=== PATIENT | male | born 1995 | race American Indian/Alaskan Native ===

== ENCOUNTER 2021-01-30 12:14 | Emergency (ER) | payer SELFPAY ==
[2021-01-30 12:20] VITALS: BP 134/84
--- NOTE | 2021-01-30 12:55 | Emergency Department Report ---
HPI - General Chief Complaint: Eye Problems Time Seen by Provider: 01/30/21 12:42 - HPI HPI: 25-year-old -Indian male presents to the emergency department with complaint of swelling to the right lower eyelid that has been going on and getting progressively worse over the past month. It is slightly tender to palpation. He denies any vision change, eye redness, eye discharge, fever, headache. No past medical history. He has not taken anything for his symptoms prior to presentation today. ED Past Medical Hx - Past Medical History Previous Medical History?: No - Surgical History Past Surgical History?: No - Medications Home Medications: Home Medications Medication Instructions Recorded Confirmed Last Taken Type Amoxicillin [Trimox CAP] 500 mg PO Q8H #21 capsule 01/30/21 Unknown Rx Erythromycin [Erythromycin Ophth 1 cm OD Q6H #1 tube 01/30/21 Unknown Rx Oint] ED Review of Systems ROS: Stated complaint: EYE INFECTION Other details as noted in HPI Comment: All other systems reviewed and negative Constitutional: denies: chills, fever Eyes: other (right lower eyelid pain/swelling). denies: eye pain ENT: denies: ear pain, throat pain Respiratory: denies: cough, shortness of breath Cardiovascular: denies: chest pain, palpitations Gastrointestinal: denies: abdominal pain, vomiting Genitourinary: denies: dysuria, discharge Musculoskeletal: denies: back pain, arthralgia Skin: denies: rash, lesions Neurological: denies: headache, weakness Physical Exam - Physical Exam Vital Signs: Vital Signs 01/30/21 12:19 Temperature 98.5 F Pulse Rate 83 Respiratory 18 Rate Blood Pressure 134/84 O2 Sat by Pulse 98 Oximetry Physical Exam: GENERAL: The patient is well-developed well-nourished. HENT: Normocephalic. Atraumatic. Patient has moist mucous membranes. EYES: Extraocular motions are intact. Pupils equal reactive to light bilate rally. There is swelling and mild redness to the right lower eyelid. No fluctuance. Mild TTP over the swelling. No eye discharge. NECK: Supple. Trachea is midline. SKIN: Skin is warm and dry. NEURO: The patient is awake, alert, and oriented. The patient is cooperative. The patient has no focal neurologic deficits. Normal speech. MUSCULOSKELETAL: There is no tenderness or deformity. ED Course Vital Signs 01/30/21 12:19 Temperature 98.5 F Pulse Rate 83 Respiratory 18 Rate Blood Pressure 134/84 O2 Sat by Pulse 98 Oximetry ED Medical Decision Making - Medical Decision Making This patient presents with a 1 month history of progressively worsening right lower eyelid pain and swelling. The area is swollen, slightly erythematous, with mild tenderness to palpation. No fluctuance and it is mobile. This appears consistent with a blepharitis versus cyst. The patient be placed on antibiotic ointment and pills and has been given outpatient referrals for ophthalmology. Critical Care Time: No Critical care attestation.: If time is entered above; I have spent that time in minutes in the direct care of this critically ill patient, excluding procedure time. ED Disposition Clinical Impression: Blepharitis of eyelid of right eye Qualifiers: Blepharitis type: unspecified type Eyelid: lower Qualified Code(s): H01.002 - Unspecified blepharitis right lower eyelid Disposition: HOME / SELF CARE / HOMELESS Is pt being admited?: No Condition: Stable Instructions: Blepharitis Additional Instructions: Please take all medications as prescribed. I am giving you a referral for multiple local ophthalmologists for outpatient follow-up. Return to the emergency department with any worsening of your symptoms, new or concerning symptoms not addressed during this current emergency department visit, or with any acute distress. Prescriptions: Erythromycin [Erythromycin Ophth Oint] 1 cm OD Q6H #1 tube Amoxicillin [Trimox CAP] 500 mg PO Q8H #21 capsule Referrals: HERNAN BATES MD [Staff Physician] - 2-3 Days AHMET MILLER MD [Staff Physician] - 2-3 Days [facility] [Provider Group] - 2-3 Days Time of Disposition: 12:55
== END 2021-01-30 14:27 | disposition home or self-care (01) ==
LOC: ED 12:14
DX: H01.002 Unspecified blepharitis right lower eyelid (principal)
CPT/HCPCS: 99281

== ENCOUNTER 2021-12-28 21:48 | Inpatient (IN) | payer OTHER ==
[2021-12-28] MEDS ORDERED: SODIUM CHLORIDE 0.9% 1000 ML 1,000 ML IV ONE ×2 (22:14→23:37)
[2021-12-28] MEDS ORDERED: ZIPRASIDONE MESYLATE 20 MG VIAL IM ONE (22:14)
[2021-12-28] MEDS ORDERED: MIDAZOLAM 5 MG/5 ML INJ MDV IV STA (22:30)
[2021-12-28 23:14] LABS: Hemoglobin 15.7 gm/dl (11.8-15.2); Mean Corpuscular HGB Conc 31 % (32-34); Mean Corpuscular Volume 92 fl (84-94); Platelet Count 245 K/mm3 (140-440); Red Blood Count 5.42 M/mm3 (3.65-5.03); Red Cell Distribution Width 15.1 % (13.2-15.2)
[2021-12-28 23:32] LABS: Alanine Aminotransferase 40 units/L (7-56); Albumin 5.4 g/dL (3.9-5); BUN/Creatinine Ratio 8; Blood Urea Nitrogen 21 mg/dL (9-20); Calcium 10.8 mg/dL (8.4-10.2); Hemolysis Index 15
[2021-12-29 00:19] LABS: Basophils % (Manual) 0 % (0.0-1.8); Eosinophils % (Manual) 0 % (0.0-4.3); RBC Morphology Normal; Total Cells Counted 100
[2021-12-29] MEDS ORDERED: ZIPRASIDONE MESYLATE 20 MG VIAL IM ONE (01:48)
[2021-12-29] MEDS ORDERED: MIDAZOLAM 2 MG/2 ML INJ ONE (01:48)
--- NOTE | 2021-12-29 03:55 | Emergency Department Report ---
ED Psych HPI - General Chief Complaint: Psych Stated Complaint: PSYCH EVAL/HALLUCINATIONS Time Seen by Provider: 12/28/21 22:13 Source: patient, family Mode of arrival: Ambulatory Limitations: Altered Mental Status - History of Present Illness Initial Comments: agitation paranoia and extreme restlessness , sister reported he took a blue pill that she thinks it is ice , history of SI Complaint: altered mental status -: hour(s) Associated Psychiatric Symptoms: racing thoughts, delusions History of same: Yes Quality: constant Improves With: none Worsens With: none Treatments Prior to Arrival: placed on mental he, physical restraints, chemical restraints - Related Data Previous Rx's Medication Instructions Recorded Last Taken Type Amoxicillin [Trimox CAP] 500 mg PO Q8H #21 capsule 01/30/21 Unknown Rx Erythromycin [Erythromycin Ophth 1 cm OD Q6H #1 tube 01/30/21 Unknown Rx Oint] Allergies Allergy/AdvReac Type Severity Reaction Status Date / Time No Known Allergies Allergy Verified 01/30/21 12:18 ED Review of Systems ROS: Stated complaint: PSYCH EVAL/HALLUCINATIONS Other details as noted in HPI Comment: Unobtainable due to pts medical conditions ED Past Medical Hx - Past Medical History Previous Medical History?: No Hx Hypertension: No Hx CVA: No - Medications Home Medications: Home Medications Medication Instructions Recorded Confirmed Last Taken Type Amoxicillin [Trimox CAP] 500 mg PO Q8H #21 capsule 01/30/21 Unknown Rx Erythromycin [Erythromycin Ophth 1 cm OD Q6H #1 tube 01/30/21 Unknown Rx Oint] ED Physical Exam - General Limitations: Altered Mental Status General appearance: alert, anxious, other (agitated ) - Head Head exam: Present: atraumatic, normocephalic - Eye Eye exam: Present: normal appearance - ENT ENT exam: Present: mucous membranes moist - Neck Neck exam: Present: normal inspection - Respiratory Respiratory exam: Present: normal lung sounds bilaterally. Absent: respiratory distress - Cardiovascular Cardiovascular Exam: Present: normal rhythm, tachycardia. Absent: systolic murmur, diastolic murmur, rubs, gallop - GI/Abdominal GI/Abdominal exam: Present: soft, normal bowel sounds - Rectal Rectal exam: Present: deferred - Extremities Exam Extremities exam: Present: normal inspection - Back Exam Back exam: Present: normal inspection - Expanded Neurological Exam Expanded Neurological exam: Present: innattentive Best Eye Response ([place]): (4) open spontaneously Best Motor Response ([place]): (6) obeys commands Best Verbal Response ([place]): (5) oriented [place] Total: 15 - Psychiatric Psychiatric exam: Present: agitated, anxious, manic - Expanded Psychiatric Exam Expanded Focused psych exam: Present: paranoid, perseverating, restlessness, loose associations - Skin Skin exam: Present: warm, intact, normal color, diaphoretic. Absent: rash ED Course Vital Signs 12/28/21 22:56 Pulse Rate 110 H Respiratory 20 Rate Blood Pressure 104/47 [Right] O2 Sat by Pulse 100 Oximetry ED Medical Decision Making - Lab Data Result diagrams: 12/29/21 03:57 12/29/21 03:57 - EKG Data -: EKG Interpreted by Me EKG shows normal: sinus rhythm Rate: tachycardia - Radiology Data Radiology results: report reviewed, image reviewed - Medical Decision Making geodon and versed given , sedated, work up showed elevated wbc most likley 2ry to dehdyration and stress, juan noted , fluids given and repeat levels showed elevated ck level, will admit for medical before clearance Critical care attestation.: If time is entered above; I have spent that time in minutes in the direct care of this critically ill patient, excluding procedure time. ED Disposition Clinical Impression: Drug-induced psychotic disorder, JUAN (acute kidney injury), Rhabdomyolysis Disposition: ADMITTED INPATIENT Is pt being admited?: Yes Does the pt Need Aspirin: No Condition: Stable Referrals: PRIMARY CARE, [Primary Care Provider] - 3-5 Days
[2021-12-29 04:14] LABS: Cannabinoid Screen,Urine Negative; Cocaine Screen,Urine Negative; Methadone Screen,Urine Negative; Opiate Screen,Urine Negative
[2021-12-29 04:29] LABS: Basophils % (Auto) 0.3 % (0.0-1.8); Eosinophils % (Auto) 0.2 % (0.0-4.3); Hematocrit 42.2 % (35.5-45.6); Hemoglobin 13.6 gm/dl (11.8-15.2); Lymphocytes # (Auto) 1.4 K/mm3 (1.2-5.4); Lymphocytes % (Auto) 7.6 % (13.4-35.0); Mean Corpuscular HGB Conc 32 % (32-34); Mean Corpuscular Volume 91 fl (84-94); Monocytes # (Auto) 1.5 K/mm3 (0.0-0.8); Monocytes % (Auto) 8.1 % (0.0-7.3); Platelet Count 180 K/mm3 (140-440); Red Blood Count 4.63 M/mm3 (3.65-5.03); Red Cell Distribution Width 15.3 % (13.2-15.2)
[2021-12-29 04:31] LABS: Amphetamine Screen,Urine Positive; Benzodiazepines Screen,Urine Positive
[2021-12-29 04:34] LABS: Albumin 4.4 g/dL (3.9-5); Calcium 9.2 mg/dL (8.4-10.2)
[2021-12-29 04:38] LABS: Color,Urine Yellow (Yellow)
[2021-12-29 04:44] LABS: Bacteria,Urine 1+ /HPF (Negative); Mucus,Urine FEW /HPF
[2021-12-29] MEDS ORDERED: MORPHINE 4 MG/1 ML INJ IV PRN (05:17)
[2021-12-29] MEDS ORDERED: ONDANSETRON 4 MG/2 ML INJ IV PRN (05:17)
[2021-12-29] MEDS ORDERED: ALBUTEROL 2.5 MG/3 ML NEBU IH PRN (05:17)
[2021-12-29] MEDS ORDERED: MORPHINE 2 MG/1 ML INJ IV PRN (05:17)
[2021-12-29] MEDS ORDERED: ACETAMINOPHEN 325 MG TAB PO PRN (05:17)
--- NOTE | 2021-12-29 05:25 | History and Physical Report ---
History of Present Illness Date of examination: 12/29/21 Date of admission: 12/29/21 Chief complaint: Agitation Paranoia Hallucination History of present illness: 26 years old male with history of suicidal ideation was brought to the emergency room because of agitation paranoia and extreme restlessness .as per sister reported patient took a blue pill that she thinks it is ice In the emergency room patient is very agitated. Patient has racing thoughts and delusions. Subsequently patient was put on restraint In the emergency room patient is found to have WBC of 23.9. CK of 1853, potassium 3.4, BUN 21 creatinine 2.6, urine drug screen shows positive for be nzos amphetamine. Still going to admit the patient we will put the patient on IV fluid. We will consult psych for evaluation as well as nephrology Past History Past Medical History: other (Suicidal ideation, paranoia) Past Surgical History: No surgical history Social history: other (Drug abuse. Urine drug screen is positive for benzo and methamphetamine) Family history: no significant family history Medications and Allergies Allergies Allergy/AdvReac Type Severity Reaction Status Date / Time No Known Allergies Allergy Verified 01/30/21 12:18 Home Medications Medication Instructions Recorded Confirmed Last Taken Type Amoxicillin [Trimox CAP] 500 mg PO Q8H #21 capsule 01/30/21 Unknown Rx Erythromycin [Erythromycin Ophth 1 cm OD Q6H #1 tube 01/30/21 Unknown Rx Oint] Active Meds: Active Medications Acetaminophen (Acetaminophen 325 Mg Tab) 650 mg PO Q4H PRN PRN Reason: Pain MILD(1-3)/Fever >100.5/ALBERT Albuterol (Albuterol 2.5 Mg/3 Ml Nebu) 2.5 mg IH Q3HRT PRN PRN Reason: Shortness Of Breath Albuterol/Ipratropium (Ipratropium/Albuterol Sulfate 3 Ml Ampul.Neb) 1 ampul IH Q6HRT LINUS Famotidine (Famotidine 20 Mg/2 Ml Inj) 20 mg IV BID LINUS Dextrose/Sodium Chloride (D5/0.45ns) 1,000 mls @ 150 mls/hr IV DIRECT LINUS Morphine Sulfate (Morphine 2 Mg/1 Ml Inj) 2 mg IV Q4H PRN PRN Reason: Pain, Moderate (4-6) Morphine Sulfate (Morphine 4 Mg/1 Ml Inj) 4 mg IV Q4H PRN PRN Reason: Pain , Severe (7-10) Ondansetron HCl (Ondansetron 4 Mg/2 Ml Inj) 4 mg IV Q8H PRN PRN Reason: Nausea And Vomiting Sodium Chloride (Sodium Chloride 0.9% 10 Ml Flush Syringe) 10 ml IV BID LINUS Sodium Chloride (Sodium Chloride 0.9% 10 Ml Flush Syringe) 10 ml IV PRN PRN PRN Reason: LINE FLUSH Review of Systems All systems: negative Constitutional: other (Agitation paranoia hallucination, racing thoughts) Exam - Constitutional Vitals: Temp Pulse Resp BP Pulse Ox 110 H 20 104/47 100 12/28/21 22:56 12/28/21 22:56 12/28/21 22:56 12/28/21 22:56 General appearance: Present: no acute distress, well-nourished - EENT Eyes: Present: PERRL ENT: hearing intact, clear oral mucosa - Neck Neck: Present: supple, normal ROM - Respiratory Respiratory effort: normal Respiratory: bilateral: CTA - Cardiovascular Heart Sounds: Present: S1 & S2. Absent: rub, click - Extremities Extremities: pulses symmetrical, No edema Peripheral Pulses: within normal limits - Abdominal General gastrointestinal: Present: soft, non-tender, non-distended, normal bowel sounds Male genitourinary: Present: normal - Integumentary Integumentary: Present: clear, warm, dry - Musculoskeletal Musculoskeletal: gait normal, strength equal bilaterally - Psychiatric Psychiatric: agitated - Neurologic Neurologic: CNII-XII intact, moves all extremities Results - Labs CBC & Chem 7: 12/29/21 03:57 12/29/21 03:57 Labs: Laboratory Last Values WBC 18.2 K/mm3 (4.5-11.0) H 12/29/21 03:57 RBC 4.63 M/mm3 (3.65-5.03) 12/29/21 03:57 Hgb 13.6 gm/dl (11.8-15.2) 12/29/21 03:57 Hct 42.2 % (35.5-45.6) D 12/29/21 03:57 MCV 91 fl (84-94) 12/29/21 03:57 MCH 29 pg (28-32) 12/29/21 03:57 MCHC 32 % (32-34) 12/29/21 03:57 RDW 15.3 % (13.2-15.2) H 12/29/21 03:57 Plt Count 180 K/mm3 (140-440) 12/29/21 03:57 Lymph % (Auto) 7.6 % (13.4-35.0) L 12/29/21 03:57 Kay % (Auto) 8.1 % (0.0-7.3) H 12/29/21 03:57 Eos % (Auto) 0.2 % (0.0-4.3) 12/29/21 03:57 Baso % (Auto) 0.3 % (0.0-1.8) 12/29/21 03:57 Lymph # (Auto) 1.4 K/mm3 (1.2-5.4) 12/29/21 03:57 Kay # (Auto) 1.5 K/mm3 (0.0-0.8) H 12/29/21 03:57 Eos # (Auto) 0.0 K/mm3 (0.0-0.4) 12/29/21 03:57 Baso # (Auto) 0.0 K/mm3 (0.0-0.1) 12/29/21 03:57 Add Manual Diff Complete 12/28/21 22:37 Total Counted 100 12/28/21 22:37 Seg Neutrophils % 83.8 % (40.0-70.0) H 12/29/21 03:57 Seg Neuts % (Manual) 91.0 % (40.0-70.0) H 12/28/21 22:37 Band Neutrophils % 0 % 12/28/21 22:37 Lymphocytes % (Manual) 6.0 % (13.4-35.0) L 12/28/21 22:37 Reactive Lymphs % (Man) 0 % 12/28/21 22:37 Monocytes % (Manual) 3.0 % (0.0-7.3) 12/28/21 22:37 Eosinophils % (Manual) 0 % (0.0-4.3) 12/28/21 22:37 Basophils % (Manual) 0 % (0.0-1.8) 12/28/21 22:37 Metamyelocytes % 0 % 12/28/21 22:37 Myelocytes % 0 % 12/28/21 22:37 Promyelocytes % 0 % 12/28/21 22:37 Blast Cells % 0 % 12/28/21 22:37 Nucleated RBC % Not Reportable 12/28/21 22:37 Seg Neutrophils # 15.3 K/mm3 (1.8-7.7) H 12/29/21 03:57 Seg Neutrophils # Man 21.7 K/mm3 (1.8-7.7) H 12/28/21 22:37 Band Neutrophils # 0.0 K/mm3 12/28/21 22:37 Lymphocytes # (Manual) 1.4 K/mm3 (1.2-5.4) 12/28/21 22:37 Abs React Lymphs (Man) 0.0 K/mm3 12/28/21 22:37 Monocytes # (Manual) 0.7 K/mm3 (0.0-0.8) 12/28/21 22:37 Eosinophils # (Manual) 0.0 K/mm3 (0.0-0.4) 12/28/21 22:37 Basophils # (Manual) 0.0 K/mm3 (0.0-0.1) 12/28/21 22:37 Metamyelocytes # 0.0 K/mm3 12/28/21 22:37 Myelocytes # 0.0 K/mm3 12/28/21 22:37 Promyelocytes # 0.0 K/mm3 12/28/21 22:37 Blast Cells # 0.0 K/mm3 12/28/21 22:37 WBC Morphology Not Reportable 12/28/21 22:37 Hypersegmented Neuts Not Reportable 12/28/21 22:37 Hyposegmented Neuts Not Reportable 12/28/21 22:37 Hypogranular Neuts Not Reportable 12/28/21 22:37 Smudge Cells Not Reportable 12/28/21 22:37 Toxic Granulation Not Reportable 12/28/21 22:37 Toxic Vacuolation Not Reportable 12/28/21 22:37 Dohle Bodies Not Reportable 12/28/21 22:37 Pelger-Huet Anomaly Not Reportable 12/28/21 22:37 Caitlin Rods Not Reportable 12/28/21 22:37 Platelet Estimate Not Reportable 12/28/21 22:37 Clumped Platelets Not Reportable 12/28/21 22:37 Plt Clumps, EDTA Not Reportable 12/28/21 22:37 Large Platelets Not Reportable 12/28/21 22:37 Giant Platelets Not Reportable 12/28/21 22:37 Platelet Satelliting Not Reportable 12/28/21 22:37 Plt Morphology Comment Not Reportable 12/28/21 22:37 RBC Morphology Normal 12/28/21 22:37 Dimorphic RBCs Not Reportable 12/28/21 22:37 Polychromasia Not Reportable 12/28/21 22:37 Hypochromasia Not Reportable 12/28/21 22:37 Poikilocytosis Not Reportable 12/28/21 22:37 Anisocytosis Not Reportable 12/28/21 22:37 Microcytosis Not Reportable 12/28/21 22:37 Macrocytosis Not Reportable 12/28/21 22:37 Spherocytes Not Reportable 12/28/21 22:37 Pappenheimer Bodies Not Reportable 12/28/21 22:37 Sickle Cells Not Reportable 12/28/21 22:37 Target Cells Not Reportable 12/28/21 22:37 Tear Drop Cells Not Reportable 12/28/21 22:37 Ovalocytes Not Reportable 12/28/21 22:37 Helmet Cells Not Reportable 12/28/21 22:37 [place] Bodies Not Reportable 12/28/21 22:37 [place] Rings Not Reportable 12/28/21 22:37 Mery Cells Not Reportable 12/28/21 22:37 Bite Cells Not Reportable 12/28/21 22:37 Crenated Cell Not Reportable 12/28/21 22:37 Elliptocytes Not Reportable 12/28/21 22:37 Acanthocytes (Spur) Not Reportable 12/28/21 22:37 Rouleaux Not Reportable 12/28/21 22:37 Hemoglobin C Crystals Not Reportable 12/28/21 22:37 Schistocytes Not Reportable 12/28/21 22:37 Malaria parasites Not Reportable 12/28/21 22:37 Devaughn Bodies Not Reportable 12/28/21 22:37 Hem Pathologist Commnt No 12/28/21 22:37 Sodium 147 mmol/L (137-145) H 12/29/21 03:57 Potassium 5.4 mmol/L (3.6-5.0) H D 12/29/21 03:57 Chloride 110.8 mmol/L (98-107) H 12/29/21 03:57 Carbon Dioxide 27 mmol/L (22-30) D 12/29/21 03:57 Anion Gap 15 mmol/L 12/29/21 03:57 BUN 22 mg/dL (9-20) H 12/29/21 03:57 Creatinine 2.3 mg/dL (0.8-1.3) H 12/29/21 03:57 Estimated GFR 42 ml/min 12/29/21 03:57 BUN/Creatinine Ratio 10 % 12/29/21 03:57 Glucose 97 mg/dL (75-100) 12/29/21 03:57 Ketones Quantitative Negative (Negative) 12/28/21 22:37 Calcium 9.2 mg/dL (8.4-10.2) 12/29/21 03:57 Total Bilirubin 0.50 mg/dL (0.1-1.2) 12/29/21 03:57 AST 52 units/L (5-40) H 12/29/21 03:57 ALT 32 units/L (7-56) 12/29/21 03:57 Alkaline Phosphatase 32 units/L (35-129) L 12/29/21 03:57 Total Creatine Kinase 1975 units/L (55-170) H 12/29/21 03:57 Total Protein 6.4 g/dL (6.3-8.2) D 12/29/21 03:57 Albumin 4.4 g/dL (3.9-5) 12/29/21 03:57 Albumin/Globulin Ratio 2.2 % 12/29/21 03:57 TSH 4.400 mlU/mL (0.270-4.200) H 12/28/21 22:37 Urine Color Yellow (Yellow) 12/29/21 03:49 Urine Turbidity Hazy (Clear) 12/29/21 03:49 Specific [place] (Man) 1.015 (1.003-1.030) 12/29/21 03:49 Ur Protein (Man) 1+ mg/dL (Negative) 12/29/21 03:49 Ur Ketones (Man) Negative (Negative) 12/29/21 03:49 Ur Nitrite (Man) Negative (Negative) 12/29/21 03:49 Leukocyte Esterase (Man) Negative (Negative) 12/29/21 03:49 Urine WBC (Auto) 6.0 /HPF (0.0-6.0) 12/29/21 03:49 Urine RBC (Auto) 6.0 /HPF (0.0-6.0) 12/29/21 03:49 U Epithel Cells (Auto) 1.0 /HPF (0-13.0) 12/29/21 03:49 Urine Bacteria (Auto) 1+ /HPF (Negative) 12/29/21 03:49 Urine RBC (Manual) Negative (Negative) 12/29/21 03:49 Urine Mucus Few /HPF 12/29/21 03:49 Urine Yeast ([place]) Few /HPF 12/29/21 03:49 Salicylates < 0.3 mg/dL (2.8-20.0) L 12/28/21 22:37 Urine Opiates Screen Negative 12/29/21 03:49 Urine Methadone Screen Negative 12/29/21 03:49 Acetaminophen 5.0 ug/mL (10.0-30.0) L 12/28/21 22:37 Ur Barbiturates Screen Negative 12/29/21 03:49 Ur Phencyclidine Scrn Negative 12/29/21 03:49 Ur Amphetamines Screen Positive 12/29/21 03:49 U Benzodiazepines Scrn Positive 12/29/21 03:49 Urine Cocaine Screen Negative 12/29/21 03:49 U Marijuana (THC) Screen Negative 12/29/21 03:49 Drugs of Abuse Note Disclamer 12/29/21 03:49 Plasma/Serum Alcohol < 0.01 % (0-0.07) 12/28/21 22:37 Assessment and Plan VTE prophylaxis?: Mechanical Plan of care discussed with patient/family: Yes - Patient Problems (1) Drug-induced psychotic disorder Current Visit: Yes Status: Acute Plan to address problem: Admit the patient to the medical floor. Oxygen per nasal penetrator per minute. DuoNeb via nebulizer every 4 hours as needed. Patient already get Versed 2 mg IV x1 dose and Geodon. We will consult psych for evaluation. We will monitor the patient closely (2) Suicidal ideation Current Visit: Yes Status: Acute Plan to address problem: We will consult psych for evaluation. We will monitor the patient closely (3) JUAN (acute kidney injury) Current Visit: Yes Status: Acute Plan to address problem: Avoid nephrotoxic drug. Renally dose medication. D5 half-normal saline at the rate of 150 cc/h. We will recheck the BMP and CK in the morning (4) Rhabdomyolysis Current Visit: Yes Status: Acute Plan to address problem: D5 half-normal saline at the rate of 150 cc/h. We will recheck the BMP and CK in the morning (5) DVT prophylaxis Current Visit: Yes Status: Acute Plan to address problem: SCD for DVT prophylaxis. Pepcid 20 mg IV every 12 hours for GI prophylaxis. Patient is a full code
--- NOTE | 2021-12-29 09:51 | Consultation ---
History of Present Illness - Reason for Consult Consult date: 12/29/21 Reason for consult: mental health evaluation - Chief Complaint Chief complaint: Agitation Paranoia Hallucination - History of Present Psychiatric Illness Patient is a 26 year-old male who admits polysubstance abuse who was dropped off to ER by his sister. Patient unable to provide complete history why he's here. When asked why patient was brught to possible, patient reports "I don't know." Patient reports "I don't feel comfortable, something ain't right." Patient reports "I'm paranoid," and "I can't trust anybody." Patient reports feeling this way for years. Patient and admits taking anxiety and antidepressant medications previously without improvement. Patient reports history of ecstasy use (last use yesterday), alcohol use, and downers. When asked if patient has history of suicide attempts or has SI at present, patient shrugged his shoulders and requests we ask someone else. Patient would not provide contact information for his sister. Patient requests he sees what we're writing down. Patient denies AVH when sober, reports AVH on drugs. PAST PSYCHIATRIC HISTORY: Diagnoses: Denies Suicide attempts or Self-harm behavior: Denies Prior psychiatric hospitalizations: Denies Substance Abuse history: Denies Previous psychiatric medications tried: Denies Outpatient treatment: Denies PAST MEDICAL HISTORY: None reported Family Psychiatric History: None reported or documented SOCIAL HISTORY Marital Status: Single Living Arrangements: Unable to assess Employment Status: Unable to assess Access to guns/weapons: Unable to assess Education: Unable to assess History of Abuse: Yes Legal History: Denies REVIEW OF SYSTEMS Constitutional: Negative for weight loss ENT: Negative for stridor Respiratory: Negative for cough or hemoptysis All other systems reviewed and are negative MENTAL STATUS EXAMINATION General Appearance and Behavior: Age appropriate, wearing appropriate clothes, uncooperative, poor eye contact Cooperation: uncooperative Psychomotor Behavior: Psychomotor slowed Mood: "I don't know," "can't trust nobody," Affect and affective range: flat Thought Process: disorganized Thought Content: reality-based, paranoid Speech: Normal volume, slow rate and rhythm Suicidal Ideation: Would not answer Homicidal Ideation: Would not answer Hallucination: Yes on drugs Delusions: None elicited Impulse Control: Limited Insight and Judgment: Poor Memory: Unable to assess Attention: Distracted Orientation: Alert ASSESSMENT Paranoid schizophrenia Polysubstance abuse TREATMENT 1013 Olanzapine 5 mg BID Medical: Per primary Sitter: Defer to primary Disposition: Recommend acute psychiatric inpatient treatment. Will sign off. Thanks Case staffed with Dr. Barney. Medications and Allergies Allergies Allergy/AdvReac Type Severity Reaction Status Date / Time No Known Allergies Allergy Verified 01/30/21 12:18 Home Medications Medication Instructions Recorded Confirmed Last Taken Type Amoxicillin [Trimox CAP] 500 mg PO Q8H #21 capsule 01/30/21 Unknown Rx Erythromycin [Erythromycin Ophth 1 cm OD Q6H #1 tube 01/30/21 Unknown Rx Oint] Active Meds: Active Medications Acetaminophen (Acetaminophen 325 Mg Tab) 650 mg PO Q4H PRN PRN Reason: Pain MILD(1-3)/Fever >100.5/ALBERT Albuterol (Albuterol 2.5 Mg/3 Ml Nebu) 2.5 mg IH Q3HRT PRN PRN Reason: Shortness Of Breath Albuterol/Ipratropium (Ipratropium/Albuterol Sulfate 3 Ml Ampul.Neb) 1 ampul IH Q6HRT LINUS Famotidine (Famotidine 20 Mg/2 Ml Inj) 20 mg IV QAM LINUS Dextrose/Sodium Chloride (D5/0.45ns) 1,000 mls @ 150 mls/hr IV DIRECT LINUS Morphine Sulfate (Morphine 2 Mg/1 Ml Inj) 2 mg IV Q4H PRN PRN Reason: Pain, Moderate (4-6) Morphine Sulfate (Morphine 4 Mg/1 Ml Inj) 4 mg IV Q4H PRN PRN Reason: Pain , Severe (7-10) Ondansetron HCl (Ondansetron 4 Mg/2 Ml Inj) 4 mg IV Q8H PRN PRN Reason: Nausea And Vomiting Sodium Chloride (Sodium Chloride 0.9% 10 Ml Flush Syringe) 10 ml IV BID LINUS Sodium Chloride (Sodium Chloride 0.9% 10 Ml Flush Syringe) 10 ml IV PRN PRN PRN Reason: LINE FLUSH Mental Status Exam - Vital signs Last Vital Signs Temp 99.2 F 12/29/21 08:50 Pulse 75 12/29/21 08:50 Resp 12 12/29/21 08:50 BP 139/77 12/29/21 08:50 Pulse Ox 100 12/29/21 08:50 Results Result Diagrams: 12/29/21 03:57 12/29/21 03:57 Abnormal lab results 12/28/21 12/28/21 12/28/21 Range/Units 22:37 22:37 22:37 WBC 23.9 H (4.5-11.0) K/mm3 RBC 5.42 H (3.65-5.03) M/mm3 Hgb 15.7 H (11.8-15.2) gm/dl Hct 50.0 H (35.5-45.6) % MCHC 31 L (32-34) % RDW (13.2-15.2) % Lymph % (Auto) (13.4-35.0) % Tyrrell % (Auto) (0.0-7.3) % Tyrrell # (Auto) (0.0-0.8) K/mm3 Seg Neutrophils % (40.0-70.0) % Seg Neuts % (Manual) 91.0 H (40.0-70.0) % Lymphocytes % (Manual) 6.0 L (13.4-35.0) % Seg Neutrophils # (1.8-7.7) K/mm3 Seg Neutrophils # Man 21.7 H (1.8-7.7) K/mm3 Sodium 148 H (137-145) mmol/L Potassium 3.4 L (3.6-5.0) mmol/L Chloride (98-107) mmol/L Carbon Dioxide 14 L (22-30) mmol/L BUN 21 H (9-20) mg/dL Creatinine 2.6 H (0.8-1.3) mg/dL Glucose 121 H (75-100) mg/dL Calcium 10.8 H (8.4-10.2) mg/dL AST 65 H (5-40) units/L Alkaline Phosphatase (35-129) units/L Total Creatine Kinase 1853 H (55-170) units/L Albumin 5.4 H (3.9-5) g/dL TSH 4.400 H (0.270-4.200) mlU/mL Salicylates (2.8-20.0) mg/dL Acetaminophen (10.0-30.0) ug/mL 12/28/21 12/28/21 12/29/21 Range/Units 22:37 22:37 03:57 WBC 18.2 H (4.5-11.0) K/mm3 RBC (3.65-5.03) M/mm3 Hgb (11.8-15.2) gm/dl Hct (35.5-45.6) % MCHC (32-34) % RDW 15.3 H (13.2-15.2) % Lymph % (Auto) 7.6 L (13.4-35.0) % Tyrrell % (Auto) 8.1 H (0.0-7.3) % Tyrrell # (Auto) 1.5 H (0.0-0.8) K/mm3 Seg Neutrophils % 83.8 H (40.0-70.0) % Seg Neuts % (Manual) (40.0-70.0) % Lymphocytes % (Manual) (13.4-35.0) % Seg Neutrophils # 15.3 H (1.8-7.7) K/mm3 Seg Neutrophils # Man (1.8-7.7) K/mm3 Sodium (137-145) mmol/L Potassium (3.6-5.0) mmol/L Chloride (98-107) mmol/L Carbon Dioxide (22-30) mmol/L BUN (9-20) mg/dL Creatinine (0.8-1.3) mg/dL Glucose (75-100) mg/dL Calcium (8.4-10.2) mg/dL AST (5-40) units/L Alkaline Phosphatase (35-129) units/L Total Creatine Kinase (55-170) units/L Albumin (3.9-5) g/dL TSH (0.270-4.200) mlU/mL Salicylates < 0.3 L (2.8-20.0) mg/dL Acetaminophen 5.0 L (10.0-30.0) ug/mL 12/29/21 Range/Units 03:57 WBC (4.5-11.0) K/mm3 RBC (3.65-5.03) M/mm3 Hgb (11.8-15.2) gm/dl Hct (35.5-45.6) % MCHC (32-34) % RDW (13.2-15.2) % Lymph % (Auto) (13.4-35.0) % Tyrrell % (Auto) (0.0-7.3) % Tyrrell # (Auto) (0.0-0.8) K/mm3 Seg Neutrophils % (40.0-70.0) % Seg Neuts % (Manual) (40.0-70.0) % Lymphocytes % (Manual) (13.4-35.0) % Seg Neutrophils # (1.8-7.7) K/mm3 Seg Neutrophils # Man (1.8-7.7) K/mm3 Sodium 147 H (137-145) mmol/L Potassium 5.4 H D (3.6-5.0) mmol/L Chloride 110.8 H (98-107) mmol/L Carbon Dioxide (22-30) mmol/L BUN 22 H (9-20) mg/dL Creatinine 2.3 H (0.8-1.3) mg/dL Glucose (75-100) mg/dL Calcium (8.4-10.2) mg/dL AST 52 H (5-40) units/L Alkaline Phosphatase 32 L (35-129) units/L Total Creatine Kinase 1975 H (55-170) units/L Albumin (3.9-5) g/dL TSH (0.270-4.200) mlU/mL Salicylates (2.8-20.0) mg/dL Acetaminophen (10.0-30.0) ug/mL All other labs normal.
[2021-12-29] MEDS ORDERED: FAMOTIDINE 20 MG/2 ML INJ IV SCH (10:00)
[2021-12-29] MEDS: HALOPERIDOL LACTATE 5 MG/1 ML INJ IM PRN (10:51)
[2021-12-29] MEDS ORDERED: SODIUM CHLORIDE 0.9% 1000 ML 1,000 ML ONE (12:44)
[2021-12-29] MEDS: IPRATROPIUM/ALBUTEROL SULFATE 3 ML AMPUL.NEB IH SCH ×3 (12:55→20:53)
[2021-12-29 13:41] LABS: BUN/Creatinine Ratio 13; Blood Urea Nitrogen 20 mg/dL (9-20); Calcium 9.5 mg/dL (8.4-10.2); Hemolysis Index 69
--- NOTE | 2021-12-29 16:34 | Consultation ---
History of Present Illness - Reason for Consult Consult date: 12/29/21 acute renal failure - History of Present Illness This is a 26 yo M with past medical history of suicidal ideation, who presents to ER with agitation paranoia and extreme restlessness. In ER patient c/o racing thoughts and delusions. Urine drug screening was positive for benzos and amphetamines. Labs showed elevated WBC of 23.9, CPK of 1853, potassium 3.4, BUN 21 creatinine 2.6. Renal consult was requested for management of JUAN Past History Past Medical History: other (Suicidal ideation, paranoia) Past Surgical History: No surgical history Social history: other (Drug abuse. Urine drug screen is positive for benzo and methamphetamine) Family history: no significant family history Medications and Allergies Allergies Allergy/AdvReac Type Severity Reaction Status Date / Time No Known Allergies Allergy Verified 01/30/21 12:18 Home Medications Medication Instructions Recorded Confirmed Last Taken Type Amoxicillin [Trimox CAP] 500 mg PO Q8H #21 capsule 01/30/21 Unknown Rx Erythromycin [Erythromycin Ophth 1 cm OD Q6H #1 tube 01/30/21 Unknown Rx Oint] Active Meds: Active Medications Acetaminophen (Acetaminophen 325 Mg Tab) 650 mg PO Q4H PRN PRN Reason: Pain MILD(1-3)/Fever >100.5/ALBERT Albuterol (Albuterol 2.5 Mg/3 Ml Nebu) 2.5 mg IH Q3HRT PRN PRN Reason: Shortness Of Breath Albuterol/Ipratropium (Ipratropium/Albuterol Sulfate 3 Ml Ampul.Neb) 1 ampul IH Q6HRT [facility] Last Admin: 12/29/21 12:55 Dose: 1 ampul Famotidine (Famotidine 20 Mg/2 Ml Inj) 20 mg IV QAM LINUS Last Admin: 12/29/21 12:55 Dose: 20 mg Haloperidol Lactate (Haloperidol Lactate 5 Mg/1 Ml Inj) 5 mg IM Q6H PRN PRN Reason: Agitation Last Admin: 12/29/21 10:51 Dose: 5 mg Dextrose/Sodium Chloride (D5/0.45ns) 1,000 mls @ 150 mls/hr IV DIRECT LINUS Morphine Sulfate (Morphine 2 Mg/1 Ml Inj) 2 mg IV Q4H PRN PRN Reason: Pain, Moderate (4-6) Morphine Sulfate (Morphine 4 Mg/1 Ml Inj) 4 mg IV Q4H PRN PRN Reason: Pain , Severe (7-10) Ondansetron HCl (Ondansetron 4 Mg/2 Ml Inj) 4 mg IV Q8H PRN PRN Reason: Nausea And Vomiting Sodium Chloride (Sodium Chloride 0.9% 10 Ml Flush Syringe) 10 ml IV BID LINUS Last Admin: 12/29/21 12:56 Dose: 10 ml Sodium Chloride (Sodium Chloride 0.9% 10 Ml Flush Syringe) 10 ml IV PRN PRN PRN Reason: LINE FLUSH Review of Systems All systems: negative Constitutional: fatigue, weakness, malaise Exam - Vital Signs Vital signs: Vital Signs Pulse Resp BP Pulse Ox 110 H 20 104/47 100 12/28/21 22:56 12/28/21 22:56 12/28/21 22:56 12/28/21 22:56 - General Appearance General appearance: well-developed, well-nourished, appears stated age EENT: ATNC, PERRL, mucous membranes moist Neck: Present: neck supple Respiratory: Clear to Ascultation Heart: regular, S1S2 Gastrointestinal: Present: normoactive bowel sounds Integumentary: no rash Neurologic: no focal deficit, alert and oriented x3, strength 5/5, CN 3-12 intact Results - Lab Results 12/29/21 03:57 12/29/21 12:23 Most recent lab results Calcium 9.5 mg/dL (8.4-10.2) 12/29/21 12:23 Assessment and Plan - Patient Problems (1) JUAN (acute kidney injury) Current Visit: Yes Status: Acute Plan to address problem: acute kidney injury 2/2 pre-renal azotemia in the setting of amphetamine abuse/volume depletion. Renal function and hypernatremia is improving promptly with IV hydration w/ D5 1/2 NS. Cont supportive care for JUAN, avoid further nephrotoxins, NSAIDS IV contrast. Will monitor lytes and renal parameters closely and make further recommendations (2) Drug-induced psychotic disorder Current Visit: Yes Status: Acute (3) Rhabdomyolysis Current Visit: Yes Status: Acute Plan to address problem: cont IV hydration iwth D5/1/2 NS and check serial CPKs
--- NOTE | 2021-12-29 18:04 | Event Note ---
Date: 12/29/21 Patient was evaluated today, and he was found to be hemodynamically stable. #Rhabdomyolysis #JUAN secondary to vasomotor nephropathy versus ATNimproving Creatinine 2.6--> 2.3--> 1.5 Creatine kinase 1852--> 1974. Continue to trend creatine kinase. Continue IV fluid resuscitation. Nephrology consulted; pending recs. #Drug-induced psychosis #Hallucinations #Delusions #Possible suicidal ideation Psychiatry consulted; appreciate recs. Patient placed on 1013 hold. Starting olanzapine 5 mg twice daily. UDS remarkable for methamphetamines #Leukocytosisimproving Likely reactive to amphetamine administration WBC 23.9--> 18.2. Continue to monitor. No indication for antibiotics at this time; however, if patient becomes hemodynamically unstable, antibiotics will be initiated. Unremarkable urinalysis #Hypokalemiaresolved #Hyperkalemiaresolved #Morbid obesity #Weight loss counseling #Exercise counseling - BMI 52.3 - Counseled patient on the importance of weight loss, incorporating exercise, and dietary changes (lean meats, fresh fruits and vegetables, and water intake). Patient expresses understanding. - Time: +15 min #Coordination of CARE time: 30 minutes. Total visit time equals 30 or more minutes with greater than 50% spent [id number] on coordination of care and counseling. #Advanced care planning -Disease education conducted, care plan discussed, diagnoses discussed, prognosis discussed, and patient acknowledges understanding with care plan -Time: +30 min
[2021-12-30] MEDS: D5W/0.45% NACL 1,000 ML IV SCH ×2 (00:11→07:53)
[2021-12-30] MEDS: HALOPERIDOL LACTATE 5 MG/1 ML INJ IM PRN (00:19)
[2021-12-30 06:26] LABS: Basophils % (Auto) 0.2 % (0.0-1.8); Eosinophils # (Auto) 0.4 K/mm3 (0.0-0.4); Eosinophils % (Auto) 4.3 % (0.0-4.3); Hematocrit 38.7 % (35.5-45.6); Hemoglobin 12.6 gm/dl (11.8-15.2); Lymphocytes % (Auto) 32.1 % (13.4-35.0); Mean Corpuscular HGB Conc 33 % (32-34); Mean Corpuscular Volume 91 fl (84-94); Monocytes # (Auto) 0.6 K/mm3 (0.0-0.8); Monocytes % (Auto) 6.7 % (0.0-7.3); Platelet Count 160 K/mm3 (140-440); Red Blood Count 4.25 M/mm3 (3.65-5.03); Red Cell Distribution Width 15.1 % (13.2-15.2)
[2021-12-30 06:43] LABS: Alanine Aminotransferase 46 units/L (7-56); Albumin 3.8 g/dL (3.9-5); BUN/Creatinine Ratio 12; Blood Urea Nitrogen 13 mg/dL (9-20); Hemolysis Index 7
--- NOTE | 2021-12-30 12:07 | Progress Note ---
Assessment and Plan - Patient Problems (1) JUAN (acute kidney injury) Current Visit: Yes Status: Acute Plan to address problem: acute kidney injury 2/2 pre-renal azotemia in the setting of amphetamine abuse/volume depletion. Renal function and hypernatremia is improving promptly with IV hydration w/ D5 1/2 NS. Cont supportive care for JUAN, avoid further nephrotoxins, NSAIDS IV contrast. No further renal recommendations at this time, will sign off. (2) Drug-induced psychotic disorder Current Visit: Yes Status: Acute (3) Rhabdomyolysis Current Visit: Yes Status: Acute Plan to address problem: cont IV hydration iwth D5/1/2 NS and check serial CPKs Subjective Date of service: 12/30/21 Principal diagnosis: JUAN Interval history: Patient is awake alert, in no acute distress Objective - Vital Signs Vital signs: Vital Signs - 12hr 12/30/21 12/30/21 07:59 10:00 Respiratory 18 Rate O2 Sat by Pulse 99 97 Oximetry - General Appearance General appearance: well-developed, well-nourished, appears stated age EENT: ATNC, PERRL, mucous membranes moist Neck: no JVD Respiratory: Present: Clear to Ascultation Cardiology: regular, S1S2 Gastrointestinal: normoactive bowel sounds Integumentary: no rash - Lab 12/30/21 05:50 12/30/21 05:50 Most recent lab results Calcium 9.0 mg/dL (8.4-10.2) 12/30/21 05:50 Phosphorus 4.30 mg/dL (2.5-4.5) 12/30/21 05:50 Magnesium 2.00 mg/dL (1.7-2.3) 12/30/21 05:50 Medications & Allergies - Medications Allergies/Adverse Reactions: Allergies No Known Allergies Allergy (Verified 01/30/21 12:18) Home Medications: Home Medications Medication Instructions Recorded Confirmed Last Taken Type Amoxicillin [Trimox CAP] 500 mg PO Q8H #21 capsule 01/30/21 Unknown Rx Erythromycin [Erythromycin Ophth 1 cm OD Q6H #1 tube 01/30/21 Unknown Rx Oint] Active Medications: Generic Name Dose Route Start Last Admin Trade Name Freq PRN Reason Stop Dose Admin Acetaminophen 650 mg 12/29/21 05:17 Acetaminophen 325 Mg Tab PO Q4H PRN Pain MILD(1-3)/Fever >100.5/ALBERT Haloperidol Lactate 5 mg 12/29/21 11:00 12/30/21 00:19 Haloperidol Lactate 5 Mg/1 Ml Inj IM 5 mg Q6H PRN Administration Agitation Morphine Sulfate 2 mg 12/29/21 05:17 Morphine 2 Mg/1 Ml Inj IV Q4H PRN Pain, Moderate (4-6) Morphine Sulfate 4 mg 12/29/21 05:17 Morphine 4 Mg/1 Ml Inj IV Q4H PRN Pain , Severe (7-10) Ondansetron HCl 4 mg 12/29/21 05:17 Ondansetron 4 Mg/2 Ml Inj IV Q8H PRN Nausea And Vomiting Sodium Chloride 10 ml 12/29/21 10:00 12/30/21 08:59 Sodium Chloride 0.9% 10 Ml Flush Syringe IV 10 ml BID LINUS Administration Sodium Chloride 10 ml 12/29/21 05:17 Sodium Chloride 0.9% 10 Ml Flush Syringe IV PRN PRN LINE FLUSH
--- NOTE | 2021-12-30 13:13 | Progress Note ---
Assessment and Plan Assessment and plan: #Rhabdomyolysisworsening #JUAN secondary to vasomotor nephropathy versus ATNresolved Creatinine 2.6--> 2.3--> 1.5 Creatine kinase 1853--> 1975--> 3056. Continue to trend creatine kinase. Continue IV fluid resuscitation. Nephrology consulted; appreciate recs. #Drug-induced psychosisresolved #Hallucinations #Delusions #Possible suicidal ideation Psychiatry consulted; appreciate recs. Patient placed on 1013 hold. Continue olanzapine 5 mg twice daily. UDS remarkable for methamphetamines #Leukocytosisimproving Likely reactive to amphetamine administration WBC 23.9--> 18.2. Continue to monitor. No indication for antibiotics at this time; however, if patient becomes hemodynamically unstable, antibiotics will be initiated. Unremarkable urinalysis #Hypokalemiaresolved #Hyperkalemiaresolved #Polysubstance dependence -Patient engages in the following substances: Amphetamines -Counseled patient about the importance of cessation of substance abuse. Offered resources to help with quitting. Patient expresses understanding. -Time: +15 mins #Morbid obesity #Weight loss counseling #Exercise counseling - BMI 52.3 - Counseled patient on the importance of weight loss, incorporating exercise, and dietary changes (lean meats, fresh fruits and vegetables, and water intake). Patient expresses understanding. - Time: +15 min #Advanced care planning -Disease education conducted, care plan discussed, diagnoses discussed, prognosis discussed, and patient acknowledges understanding with care plan -Time: +30 min #Discharge planning - Patient is pending discontinuation of 1013 by psychiatry - Case management has been made aware. Disposition Plan: Continue medical management Total Time Spent with Patient (Minutes): 45 minutes History Interval history: No acute events overnight. Hospitalist Physical - Constitutional Vitals: Temp Pulse Resp BP Pulse Ox 98.8 F 57 L 16 112/60 99 12/30/21 12:12/30/21 12:12/30/21 12:12/30/21 12:12/30/21 12:46 General appearance: Present: no acute distress, well-nourished - EENT Eyes: Present: PERRL, EOM intact ENT: hearing intact, clear oral mucosa, dentition normal - Neck Neck: Present: supple, normal ROM - Respiratory Respiratory effort: normal Respiratory: bilateral: CTA - Cardiovascular Rhythm: regular Heart Sounds: Present: S1 & S2 - Extremities Extremities: no ischemia, pulses intact, pulses symmetrical, No edema, normal temperature, normal color, Full ROM Peripheral Pulses: within normal limits - Abdominal General gastrointestinal: soft, non-tender, non-distended, normal bowel sounds - Integumentary Integumentary: Present: clear, warm, dry - Psychiatric Psychiatric: appropriate mood/affect - Neurologic Neurologic: CNII-XII intact, moves all extremities - Allied Health Allied health notes reviewed: nursing Results - Labs CBC & Chem 7: 12/30/21 05:50 12/30/21 05:50 Labs: Laboratory Last Values WBC 9.3 K/mm3 (4.5-11.0) 12/30/21 05:50 RBC 4.25 M/mm3 (3.65-5.03) 12/30/21 05:50 Hgb 12.6 gm/dl (11.8-15.2) 12/30/21 05:50 Hct 38.7 % (35.5-45.6) 12/30/21 05:50 MCV 91 fl (84-94) 12/30/21 05:50 MCH 30 pg (28-32) 12/30/21 05:50 MCHC 33 % (32-34) 12/30/21 05:50 RDW 15.1 % (13.2-15.2) 12/30/21 05:50 Plt Count 160 K/mm3 (140-440) 12/30/21 05:50 Lymph % (Auto) 32.1 % (13.4-35.0) 12/30/21 05:50 Harrison % (Auto) 6.7 % (0.0-7.3) 12/30/21 05:50 Eos % (Auto) 4.3 % (0.0-4.3) 12/30/21 05:50 Baso % (Auto) 0.2 % (0.0-1.8) 12/30/21 05:50 Lymph # (Auto) 3.0 K/mm3 (1.2-5.4) 12/30/21 05:50 Harrison # (Auto) 0.6 K/mm3 (0.0-0.8) 12/30/21 05:50 Eos # (Auto) 0.4 K/mm3 (0.0-0.4) 12/30/21 05:50 Baso # (Auto) 0.0 K/mm3 (0.0-0.1) 12/30/21 05:50 Add Manual Diff Complete 12/28/21 22:37 Total Counted 100 12/28/21 22:37 Seg Neutrophils % 56.7 % (40.0-70.0) 12/30/21 05:50 Seg Neuts % (Manual) 91.0 % (40.0-70.0) H 12/28/21 22:37 Band Neutrophils % 0 % 12/28/21 22:37 Lymphocytes % (Manual) 6.0 % (13.4-35.0) L 12/28/21 22:37 Reactive Lymphs % (Man) 0 % 12/28/21 22:37 Monocytes % (Manual) 3.0 % (0.0-7.3) 12/28/21 22:37 Eosinophils % (Manual) 0 % (0.0-4.3) 12/28/21 22:37 Basophils % (Manual) 0 % (0.0-1.8) 12/28/21 22:37 Metamyelocytes % 0 % 12/28/21 22:37 Myelocytes % 0 % 12/28/21 22:37 Promyelocytes % 0 % 12/28/21 22:37 Blast Cells % 0 % 12/28/21 22:37 Nucleated RBC % Not Reportable 12/28/21 22:37 Seg Neutrophils # 5.2 K/mm3 (1.8-7.7) 12/30/21 05:50 Seg Neutrophils # Man 21.7 K/mm3 (1.8-7.7) H 12/28/21 22:37 Band Neutrophils # 0.0 K/mm3 12/28/21 22:37 Lymphocytes # (Manual) 1.4 K/mm3 (1.2-5.4) 12/28/21 22:37 Abs React Lymphs (Man) 0.0 K/mm3 12/28/21 22:37 Monocytes # (Manual) 0.7 K/mm3 (0.0-0.8) 12/28/21 22:37 Eosinophils # (Manual) 0.0 K/mm3 (0.0-0.4) 12/28/21 22:37 Basophils # (Manual) 0.0 K/mm3 (0.0-0.1) 12/28/21 22:37 Metamyelocytes # 0.0 K/mm3 12/28/21 22:37 Myelocytes # 0.0 K/mm3 12/28/21 22:37 Promyelocytes # 0.0 K/mm3 12/28/21 22:37 Blast Cells # 0.0 K/mm3 12/28/21 22:37 WBC Morphology Not Reportable 12/28/21 22:37 Hypersegmented Neuts Not Reportable 12/28/21 22:37 Hyposegmented Neuts Not Reportable 12/28/21 22:37 Hypogranular Neuts Not Reportable 12/28/21 22:37 Smudge Cells Not Reportable 12/28/21 22:37 Toxic Granulation Not Reportable 12/28/21 22:37 Toxic Vacuolation Not Reportable 12/28/21 22:37 Dohle Bodies Not Reportable 12/28/21 22:37 Pelger-Huet Anomaly Not Reportable 12/28/21 22:37 Caitlin Rods Not Reportable 12/28/21 22:37 Platelet Estimate Not Reportable 12/28/21 22:37 Clumped Platelets Not Reportable 12/28/21 22:37 Plt Clumps, EDTA Not Reportable 12/28/21 22:37 Large Platelets Not Reportable 12/28/21 22:37 Giant Platelets Not Reportable 12/28/21 22:37 Platelet Satelliting Not Reportable 12/28/21 22:37 Plt Morphology Comment Not Reportable 12/28/21 22:37 RBC Morphology Normal 12/28/21 22:37 Dimorphic RBCs Not Reportable 12/28/21 22:37 Polychromasia Not Reportable 12/28/21 22:37 Hypochromasia Not Reportable 12/28/21 22:37 Poikilocytosis Not Reportable 12/28/21 22:37 Anisocytosis Not Reportable 12/28/21 22:37 Microcytosis Not Reportable 12/28/21 22:37 Macrocytosis Not Reportable 12/28/21 22:37 Spherocytes Not Reportable 12/28/21 22:37 Pappenheimer Bodies Not Reportable 12/28/21 22:37 Sickle Cells Not Reportable 12/28/21 22:37 Target Cells Not Reportable 12/28/21 22:37 Tear Drop Cells Not Reportable 12/28/21 22:37 Ovalocytes Not Reportable 12/28/21 22:37 Helmet Cells Not Reportable 12/28/21 22:37 [place] Bodies Not Reportable 12/28/21 22:37 [place] Rings Not Reportable 12/28/21 22:37 Mery Cells Not Reportable 12/28/21 22:37 Bite Cells Not Reportable 12/28/21 22:37 Crenated Cell Not Reportable 12/28/21 22:37 Elliptocytes Not Reportable 12/28/21 22:37 Acanthocytes (Spur) Not Reportable 12/28/21 22:37 Rouleaux Not Reportable 12/28/21 22:37 Hemoglobin C Crystals Not Reportable 12/28/21 22:37 Schistocytes Not Reportable 12/28/21 22:37 Malaria parasites Not Reportable 12/28/21 22:37 Devaughn Bodies Not Reportable 12/28/21 22:37 Hem Pathologist Commnt No 12/28/21 22:37 Sodium 144 mmol/L (137-145) 12/30/21 05:50 Potassium 3.7 mmol/L (3.6-5.0) 12/30/21 05:50 Chloride 107.9 mmol/L (98-107) H 12/30/21 05:50 Carbon Dioxide 23 mmol/L (22-30) 12/30/21 05:50 Anion Gap 17 mmol/L 12/30/21 05:50 BUN 13 mg/dL (9-20) 12/30/21 05:50 Creatinine 1.1 mg/dL (0.8-1.3) 12/30/21 05:50 Estimated GFR > 60 ml/min 12/30/21 05:50 BUN/Creatinine Ratio 12 % 12/30/21 05:50 Glucose 61 mg/dL (75-100) L 12/30/21 05:50 Ketones Quantitative Negative (Negative) 12/28/21 22:37 Calcium 9.0 mg/dL (8.4-10.2) 12/30/21 05:50 Phosphorus 4.30 mg/dL (2.5-4.5) 12/30/21 05:50 Magnesium 2.00 mg/dL (1.7-2.3) 12/30/21 05:50 Total Bilirubin 1.00 mg/dL (0.1-1.2) 12/30/21 05:50 AST 75 units/L (5-40) H 12/30/21 05:50 ALT 46 units/L (7-56) 12/30/21 05:50 Alkaline Phosphatase 30 units/L (35-129) L 12/30/21 05:50 Total Creatine Kinase 3056 units/L (55-170) H 12/30/21 05:50 Total Protein 5.7 g/dL (6.3-8.2) L 12/30/21 05:50 Albumin 3.8 g/dL (3.9-5) L 12/30/21 05:50 Albumin/Globulin Ratio 2.0 % 12/30/21 05:50 TSH 1.340 mlU/mL (0.270-4.200) 12/29/21 11:34 Free T4 1.53 ng/dL (0.76-1.46) H 12/29/21 11:34 Urine Color Yellow (Yellow) 12/29/21 03:49 Urine Turbidity Hazy (Clear) 12/29/21 03:49 Specific [place] (Man) 1.015 (1.003-1.030) 12/29/21 03:49 Ur Protein (Man) 1+ mg/dL (Negative) 12/29/21 03:49 Ur Ketones (Man) Negative (Negative) 12/29/21 03:49 Ur Nitrite (Man) Negative (Negative) 12/29/21 03:49 Leukocyte Esterase (Man) Negative (Negative) 12/29/21 03:49 Urine WBC (Auto) 6.0 /HPF (0.0-6.0) 12/29/21 03:49 Urine RBC (Auto) 6.0 /HPF (0.0-6.0) 12/29/21 03:49 U Epithel Cells (Auto) 1.0 /HPF (0-13.0) 12/29/21 03:49 Urine Bacteria (Auto) 1+ /HPF (Negative) 12/29/21 03:49 Urine RBC (Manual) Negative (Negative) 12/29/21 03:49 Urine Mucus Few /HPF 12/29/21 03:49 Urine Yeast (Budding) Few /HPF 12/29/21 03:49 Salicylates < 0.3 mg/dL (2.8-20.0) L 12/28/21 22:37 Urine Opiates Screen Negative 12/29/21 03:49 Urine Methadone Screen Negative 12/29/21 03:49 Acetaminophen 5.0 ug/mL (10.0-30.0) L 12/28/21 22:37 Ur Barbiturates Screen Negative 12/29/21 03:49 Ur Phencyclidine Scrn Negative 12/29/21 03:49 Ur Amphetamines Screen Positive 12/29/21 03:49 U Benzodiazepines Scrn Positive 12/29/21 03:49 Urine Cocaine Screen Negative 12/29/21 03:49 U Marijuana (THC) Screen Negative 12/29/21 03:49 Drugs of Abuse Note Disclamer 12/29/21 03:49 Plasma/Serum Alcohol < 0.01 % (0-0.07) 12/28/21 22:37 SARS-CoV-2 (PCR) Negative (Negative) 12/30/21 08:45 Cazares/IV: Voiding Method Toilet Active Medications - Current Medications Current Medications: Generic Name Dose Route Start Last Admin Trade Name Freq PRN Reason Stop Dose Admin Acetaminophen 650 mg 12/29/21 05:17 Acetaminophen 325 Mg Tab PO Q4H PRN Pain MILD(1-3)/Fever >100.5/ALBERT Haloperidol Lactate 5 mg 12/29/21 11:00 12/30/21 00:19 Haloperidol Lactate 5 Mg/1 Ml Inj IM 5 mg Q6H PRN Administration Agitation Morphine Sulfate 2 mg 12/29/21 05:17 Morphine 2 Mg/1 Ml Inj IV Q4H PRN Pain, Moderate (4-6) Morphine Sulfate 4 mg 12/29/21 05:17 Morphine 4 Mg/1 Ml Inj IV Q4H PRN Pain , Severe (7-10) Ondansetron HCl 4 mg 12/29/21 05:17 Ondansetron 4 Mg/2 Ml Inj IV Q8H PRN Nausea And Vomiting Sodium Chloride 10 ml 12/29/21 10:00 12/30/21 08:59 Sodium Chloride 0.9% 10 Ml Flush Syringe IV 10 ml BID LINUS Administration Sodium Chloride 10 ml 12/29/21 05:17 Sodium Chloride 0.9% 10 Ml Flush Syringe IV PRN PRN LINE FLUSH
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
[2021-12-31 11:41] VITALS: BP 123/71
--- NOTE | 2021-12-31 12:54 | Discharge Summary ---
Providers - Providers Date of Admission: 12/29/21 05:17 Date of discharge: 12/31/21 Attending physician: JIMMY LOVE MD 12/29/21 05:19 Consult to Physician [CONS] Routine Comment: Consulting Provider: TRAV ALEXANDRE Physician Instructions: Reason For Exam: juan psychiatry consult [Consult to Mental Health] [CONS] Routine Reason For Exam: Psychosis Primary care physician: CANDLE MOLDER HAND Hospitalization Reason for admission: Rhabdomyolysis, JUAN secondary to vasomotor nephropathy Condition: Stable Pertinent studies: Reviewed. Procedures: None. Hospital course: Patient is a 26-year-old male with past medical history of polysubstance dependence and prior history of possible suicide attempt who presented to the ED for acute psychosis, agitated paranoia and extreme restlessness. Patient was wrapped in the ED by his sister. Patient endorsed taking a "blue pill" that was presumed to be "ice". In the ED, patient was found to be hemodynamically stable and tachycardic at 110. Patient's labs are remarkable for sodium 147, potassium 5.4, creatinine 2.3, WBC 18.2, and creatine kinase 1853. The patient was initiated on 1013 protocol, and he received IV fluid resuscitation and 1 dose of antibiotics. Nephrology was consulted for management of JUAN secondary to rhabdomyolysis. The patient's electrolyte abnormalities have since returned to baseline. Patient was counseled at length about the importance of cessation of ecstasy. Psychiatry was consulted for further management, and they have since rescinded the 1013. Patient is medically clear for discharge. Disposition: 01 HOME / SELF CARE / HOMELESS Final Discharge Diagnosis (Prints w/discharge instructions): Rhabdomyolysis, JUAN secondary to vasomotor nephropathy versus ATN, drug-induced psychosis, hallucinations, possible suicidal ideation, leukocytosis, hypokalemia, hyperkalemia, polysubstance dependence. Time spent for discharge: 45 min Core Measure Documentation - Palliative Care Palliative Care/ Comfort Measures: Not Applicable - Core Measures Any of the following diagnoses?: none Exam - Constitutional Vitals: Temp Pulse Resp BP Pulse Ox 98.4 F 60 20 123/71 98 12/31/21 11:35 12/31/21 11:35 12/31/21 11:35 12/31/21 11:35 12/31/21 11:35 General appearance: Present: no acute distress, well-nourished - EENT Eyes: Present: PERRL, EOM intact ENT: hearing intact, clear oral mucosa, dentition normal - Neck Neck: Present: supple, normal ROM - Respiratory Respiratory effort: normal Respiratory: bilateral: CTA - Cardiovascular Rhythm: regular Heart Sounds: Present: S1 & S2 - Extremities Extremities: no ischemia, pulses intact, pulses symmetrical, No edema, normal temperature, normal color, Full ROM Peripheral Pulses: within normal limits - Abdominal General gastrointestinal: Present: soft, non-tender, non-distended, normal bowel sounds Male genitourinary: Present: deferred - Rectal Rectal Exam: deferred - Integumentary Integumentary: Present: clear, warm, dry - Musculoskeletal Musculoskeletal: strength equal bilaterally - Psychiatric Psychiatric: appropriate mood/affect, intact judgment & insight, memory intact, cooperative - Neurologic Neurologic: CNII-XII intact, moves all extremities - Allied Health Allied health notes reviewed: nursing Plan Activity: no restrictions Diet: regular Additional Instructions: Patient is a 26-year-old male with past medical history of polysubstance dependence and prior history of possible suicide attempt who presented to the ED for acute psychosis, agitated paranoia and extreme restlessness. Patient was wrapped in the ED by his sister. Patient endorsed taking a "blue pill" that was presumed to be "ice". In the ED, patient was found to be hemodynamically stable and tachycardic at 110. Patient's labs are remarkable for sodium 147, potassium 5.4, creatinine 2.3, WBC 18.2, and creatine kinase 1853. The patient was initiated on 1013 protocol, and he received IV fluid resuscitation and 1 dose of antibiotics. Nephrology was consulted for management of JUAN secondary to rhabdomyolysis. The patient's electrolyte abnor malities have since returned to baseline. Patient was counseled at length about the importance of cessation of ecstasy. Psychiatry was consulted for further management, and they have since rescinded the 1013. Patient is medically clear for discharge. Care Plan Goals: Patient is medically cleared for discharge. Assessment: Patient is a 26-year-old male with past medical history of polysubstance dependence and prior history of possible suicide attempt who presented to the ED for acute psychosis, agitated paranoia and extreme restlessness. Patient was wrapped in the ED by his sister. Patient endorsed taking a "blue pill" that was presumed to be "ice". In the ED, patient was found to be hemodynamically stable and tachycardic at 110. Patient's labs are remarkable for sodium 147, potassium 5.4, creatinine 2.3, WBC 18.2, and creatine kinase 1853. The patient was initiated on 1013 protocol, and he received IV fluid resuscitation and 1 d ose of antibiotics. Nephrology was consulted for management of JUAN secondary to rhabdomyolysis. The patient's electrolyte abnormalities have since returned to baseline. Patient was counseled at length about the importance of cessation of ecstasy. Psychiatry was consulted for further management, and they have since rescinded the 1013. Patient is medically clear for discharge. Follow up with: PRIMARY CARE, [Primary Care Provider] - 3-5 Days
== END 2021-12-31 14:15 | disposition home or self-care (01) | DRG 682 ==
LOC: ED 21:48 → 3A 12-29 05:17
PROVIDERS: ADMIT Hospitalist; ATTEND Student in an Organized Health Care Education/Training Program
DX: N17.0 Acute kidney failure with tubular necrosis (principal); I50.41 Acute combined systolic (congestive) and diastolic (congestive) heart failure; M62.82 Rhabdomyolysis; F20.0 Paranoid schizophrenia; R45.851 Suicidal ideations; Z20.822 Contact with and (suspected) exposure to COVID-19; F19.10 Other psychoactive substance abuse, uncomplicated; E87.6 Hypokalemia; E87.5 Hyperkalemia; E66.01 Morbid (severe) obesity due to excess calories; Z71.3 Dietary counseling and surveillance; Z68.29 Body mass index [BMI] 29.0-29.9, adult; F16.10 Hallucinogen abuse, uncomplicated
CPT/HCPCS: 36415; 80048; 80053; 80307; 80320; 81001; 82010; 82550; 83735; 84100; 84439; 84443; 85007; 85025; 94640; 99285; G0378; J3490; J7070; G0480; J1630; J2250; J3486; J7030; U0003